=== PATIENT | female | born 1950 | race Caucasian/White ===

== ENCOUNTER 2016-10-23 10:37 | Emergency (ER) | payer MEDICARE, MEDICAID ==
--- NOTE | 2016-10-29 21:34 | ER ---
ADMIT: 10/23/2016 RM/LOC: ER [facility] MR#: [id number] [address] [id number] [address] [place] [address] Emergency Room Report SEX: F AGE: 66 : 1950 DATE: 10/23/2016 This 66-year-old female, who is wheelchair-bound secondary to MS was being moved last night by Kirill when she banged her left ankle. Comes to the Emergency Department this morning complaining of ankle pain. X-rays were negative. The patient was diagnosed with ankle pain. See T-sheet for history and physical. She was given Ultram with rapid resolution of her discomfort. She is given a prescription for Ultram to take at home. Encouraged to ice the ankle and follow up as needed. Irving Plasencia MD/ nigel JOB #: [id number] CC: Irving Plasencia MD, Attending Physician Adrian Waterman MD, Family Physician
== END 2016-10-23 12:50 | disposition home or self-care (01) ==
LOC: ER 10:37
DX: M25.572 Pain in left ankle and joints of left foot (principal); Z88.5 Allergy status to narcotic agent; Z79.899 Other long term (current) drug therapy; W22.8XXA Striking against or struck by other objects, initial encounter; Y92.009 Unspecified place in unspecified non-institutional (private) residence as the place of occurrence of the external cause

== ENCOUNTER → 2016-11-07 | Outpatient (CLI) | payer MEDICARE, MEDICAID | END | disposition home or self-care (01) | LOC: RAD.S 09:53 | DX: R13.10 Dysphagia, unspecified (principal); M43.6 Torticollis; G35 Multiple sclerosis ==